=== PATIENT | male | born 1940 | race Caucasian/White ===

== ENCOUNTER → 2019-11-09 | Outpatient (CLI) | payer OTHER, BC ==
[~2019-11-09] MED LIST: ALTACE 1.25 M1.25 M1 PO; ASPIRIN EC325 M1 PO; EFFIENT10 MG PO; FISH OIL 1,0001 EAC7 PO; LIVALO4 MG PO; MULTIVITAMINS PO; MULTIVITAMINS1 EAC7 PO; OMEPRAZOLE40 MG PO; RAMIPRIL PO; TOPROL XL25 MG PO; VITAMIN E100 UNI2 PO; VITAMIN E400 UNIT PO
== END ==
LOC: SJCVCIMAG 10:38
DX: I25.10 Atherosclerotic heart disease of native coronary artery without angina pectoris (principal); E78.00 Pure hypercholesterolemia, unspecified; I73.9 Peripheral vascular disease, unspecified; I65.23 Occlusion and stenosis of bilateral carotid arteries; K21.9 Gastro-esophageal reflux disease without esophagitis; Z82.49 Family history of ischemic heart disease and other diseases of the circulatory system; Z79.82 Long term (current) use of aspirin; Z79.899 Other long term (current) drug therapy

== ENCOUNTER 2019-11-10 10:26 | Inpatient (IN) | payer OTHER, BC ==
[2019-11-10] VITALS (9 sets, daily range): BP systolic 117–154; BP diastolic 49–88
[~2019-11-10] VITALS: Ht 180.3 cm; Wt 64.4 kg
--- NOTE | ~2019-11-10 | EKG ---
[facility] [place] [address] [address] ELECTROCARDIOGRAM REPORT Name: REBECCA MADDOX Room #: 202-P ADM IN M.R.#: [id number] Admission: 11/10/19 Attend Phys: Chao Burr MD, Discharge: Date of : 38 Report #: [id number] THIS REPORT FOR: cc: Daniel Rai MD, Peter MD Epiphany,Danyell GIBBONS ~ THIS REPORT FOR: //name// [facility] Test Date: 2019-11-11 Test Time: 07:12:40 Pat Name: REBECCA MADDOX Department: Room: 202 P Gender: M Burial Vault Maker: CHARLES : 1940 Requested By: Chao Burr Order Number: [id number] MD: Measurements Intervals [place] Rate: 74 P: 6 [place]: 188 QRS: 7 QRSD: 61 T: 15 QT: 359 QTc: 399 Interpretive Statements Sinus rhythm Abnormal R-wave progression, early transition Compared to ECG 01/30/2017 07:20:23 First degree AV block no longer present Early repolarization no longer present [email or web address] By: 0712 1 Epiphany Epiphany, /EPI
--- NOTE | ~2019-11-10 | EKG ---
[address] [place] [address] ELECTROCARDIOGRAM REPORT Name: REBECCA MADDOX Room #: REG CLI [facility]#: [id number] Admission: 11/10/19 Attend Phys: Chao Burr MD, Discharge: Date of : 38 Report #: [id number] THIS REPORT FOR: //name// [facility] Test Date: 2019-11-10 Test Time: 11:05:15 Pat Name: REBECCA MADDOX Department: Room: Gender: M Restorative Care Technician: Arlene DELA CRUZ : 1940 Requested By: Chao Burr Order Number: [id number] MD: Measurements Intervals Left Hand Rate: 59 P: 21 DC: 246 QRS: 7 QRSD: 71 T: 19 QT: 388 QTc: 385 Interpretive Statements Sinus rhythm Prolonged DC interval Abnormal R-wave progression, early transition Borderline ST elevation, anterolateral leads Compared to ECG 01/30/2017 07:20:23 ST (T wave) deviation now present Early repolarization no longer present [email or web address] By: 1105 1105 Epiphany Epiphany, /EPI
[2019-11-10 11:12] LABS: HEMATOCRIT 45.6 % (42.0-52.0); HEMOGLOBIN 15.2 gm/dL (14.0-18.0); MCHC 33.3 g/dL (28.0-37.0); RBC 5.07 mil/uL (4.50-6.00); RDW 14.7 % (10.5-14.5); WBC 7.9 thou/uL (4.0-11.0)
[2019-11-10 11:25] LABS: CALCIUM 9.3 mg/dL (8.5-10.1); CREATININE 1.2 mg/dL (0.7-1.3); POTASSIUM 3.7 mmol/L (3.5-5.1)
--- NOTE | 2019-11-10 18:31 | NUR ---
NEW ADMIT/OBSERVATION POST HEART CATH WITH 1 STENT PLACED. ALERT X4, DENIES PAIN, VS STABLE. RIGHT GROIN SITE C/D/I, REMAINED LEG STRAIGHT FOR 3 HOURS POST HEMOTASSIS PER PROTOCOL. POST CATH INTERVENTIONS IN PLACE. PATIENT COMPLIANT WITH CARES. ADMISSION HISTORY AND ASSESMENT COMPLETED. CALL LIGHT IN REACH. PT EDUCATED TO CALL FOR ASSISTENCE.
[2019-11-11 00:30] VITALS: BP 109/67
--- NOTE | 2019-11-11 04:38 | NUR ---
ASSESSMENTS CHARTED, MEDS GIVEN CHARTED. PATIENT OFF BEDREST POST CATH AT START OF SHIFT. RECEIVED STENT TO OM. RIGHT GROIN SITE BANDAGE IS DRY AND INTACT. SURROUNDING AREA IS SOFT, NO HEMATOMA. DENIED PAIN. UP AT CAM IN ROOM. PLAN IS TO GO HOME IN AM.
[2019-11-11 04:45] VITALS: BP 102/63
[2019-11-11 04:46] LABS: HEMOGLOBIN 13.3 gm/dL (14.0-18.0); MCH 29.6 pg (26.0-34.0); MCHC 33.3 g/dL (28.0-37.0); MCV 88.8 fL (80.0-100.0); RBC 4.5 mil/uL (4.50-6.00); RDW 14.7 % (10.5-14.5); WBC 7.3 thou/uL (4.0-11.0)
[2019-11-11 05:22] LABS: ALBUMIN 3.3 g/dL (3.4-5.0); ANION GAP 8 mmol/L (7-16); BUN 16 mg/dL (7-18); CALCIUM 8.2 mg/dL (8.5-10.1); CHLORIDE 104 mmol/L (98-107); CO2 25 mmol/L (21-32); CREATININE 0.9 mg/dL (0.7-1.3); GLUCOSE 93 mg/dL (74-106); POTASSIUM 4.3 mmol/L (3.5-5.1); SGPT 33 U/L (30-65); SODIUM 137 mmol/L (136-145); TOTAL BILIRUBIN 0.9 mg/dL (<0.1-1.0); TOTAL PROTEIN 6.7 g/dL (6.4-8.2); TROPONIN-I <0.06 ng/mL (<0.06)
[2019-11-11 06:06] LABS: SGOT 26 U/L (15-37)
[2019-11-11 07:30] VITALS: BP 111/69
[2019-11-11] MEDS ORDERED: EFFIENT10 MG PO (07:45)
[2019-11-11 10:06] VITALS: BP 111/69
--- NOTE | 2019-11-11 11:17 | NUR ---
ASSUMED CARE 0700. ALERT X4, DENIES CHEST PAIN, DENIES GROIN SITE PAIN, DENIES SOB. UP AB CAM, DRESSING TO RIGHT GROIN C/D/I. MARKETING PROGRAM COORDINATORCAVALRY SCOUT CATH SITE CARE, HEART HEALTHY DIET AND EXERCISE INCLUDING EDUCATIONAL PAPERWORK REGARDING STENT PLACMENT POST CARE. IV AND TELE REMOVED. DC HOME WITH SELF CARE.
--- NOTE | 2019-11-11 16:12 | CATHLAB ---
[facility] [place] [address] [place] [address] INVASIVE PROCEDURE REPORT Name: REBECCA MADDOX Room #: 202-P DIS IN M.R.#: [id number] Admission: 11/10/19 Attend Phys: Chao Burr MD, Discharge: 11/11/19 Date of : 38 Report #: [id number] THIS REPORT FOR: cc: Daniel Rai MD, Peter MD Mancuso, Gerald M. MD [facility] ~ THIS REPORT FOR: //name// APPROVED REPORT Study performed: 11/10/2019 12:46:01 Patient Details Patient Status: Out-Patient Room #: The patient is a 79 year-old male Event Personnel Chao Burr Aircraft Engine Cylinder Mechanic, Tia Rajput RN RN, Melanie Luevano RTR, Duran Mcneal Sherra RTR Monitor Procedures Performed Art Access - R femoral artery* Left Heart Cath w/or w/o Coronaries 3360662 [facility] Place w/wo Plasty Single RCA 632828 82751 Initial Mod Sed Same Phys/QHP Gr5y 324379 88112 Mod Sed Same Phys/QHP Ea 803679 Hemostasis w/ Mynx Indication Chest pain Procedure Narrative The Right Groin^ was infiltrated with 1% Lidocaine subcutaneous anesthesia. A PINNACLE 6FR Sheath #[id number] sheath was inserted into the RFA^. Coronary angiography was performed using coronary diagnostic catheters. The right coronary system was accessed and visualized with a 6FR 3DRC #[id number] catheter. The left coronary system was accessed and visualized with a JL4 catheter. The left ventricle was accessed and visualized with a Pigtail catheter. Left ventriculogram was performed in 30 degree projection. Closure device was deployed with a 6 Fr MYNXGRIP 6/7F #[id number]. The patient tolerated the procedure well and there were no complications associated with the procedure. There was no hematoma. Intraoperative Conscious Sedation [facility] [place] [address] INVASIVE PROCEDURE REPORT Name: REBECCA MADDOX Room #: 202-P [facility] IN .R.#: [id number] Admission: 11/10/19 Attend Phys: Chao Burr, Discharge: 11/11/19 Date of : 38 Report #: [id number] Sedation start time: 1357 Case end Time: 1459 Fentanyl 50 mcg Versed 1 mg Fluoro Time: 11.30 minutes Dose: DAP 8393.60 cGycm2 1059 mGy Contrast Type and Amount: Visipaque 125 ml Hemodynamics The aortic pressure is 114/62 mmHg with a mean of 39 mmHg. The left ventricular pressure is 115/22 mmHg with a mean of mmHg. The left ventricular end diastolic pressure is 26 mmHg. PCI Technique Lesion Percutaneous coronary intervention was performed on the proximal right coronary artery. A LAUNCHER 6FR 3DRC #[id number] Guide Catheter was used to engage the ostium. A Luge Wire .014 x 182CM #[id number] Interventional Guidewire was used to cross the lesion. BALLOON DILATION A Balloon catheter TREK NC OTW 2.5 X 12 #[id number] was inserted and inflated up to 14.00atm for 28seconds. Additional Inflation: 18atm for 18seconds. Additional Inflation: 22.00atm for 29seconds. NC Trek 3.0x12 MARCY 22/36 secs and MARCY 22/26 secs STENT DEPLOYMENT A drug-eluting stent XIENCE SCARLET RX 3.25 X 8 #[id number] was inserted and inflated up to 6atm for 20seconds. POST STENT DEPLOYMENT BALLOON DILATION A Balloon catheter TREK NC OTW 3.5 X 12 #[id number] was inserted and inflated up to 20.00atm for 33seconds. Conclusion #1 successful PTCA stent of a high-grade ostial RCA and partial proximal in-stent restenosis 90% in the dominant right coronary artery. Placement of a 3.25 x 8 Scarlet drug-eluting stent postdilated with a noncompliant 3.5 balloon to 3.7 mm arc improvement distal flow Mid RCA lesion of 50-60% will follow #2 left main mild disease giving rise to LAD and circumflex #3 LAD with an eccentric 60-70% proximal lesion just off the left main heading into previously placed stents widely patent and diffuse disease distally. We will follow this this has not progressed from prior catheterization of one year ago. #4 circumflex OM mild disease moderate distribution [address] [address] INVASIVE PROCEDURE REPORT Name: REBECCA MADDOX Room #: 202-P [facility] IN M.R.#: [id number] Admission: 11/10/19 Attend Phys: Chao Burr, Discharge: 11/11/19 Date of : 38 Report #: [id number] #5 normal left ventricular size and ejection fraction 50-55 percent Recommendations plan continue aggressive risk factor modification. Dual antiplatelet therapy at least one year. We will follow the mid RCA and ostial LAD lesions although they have not progressed since prior exam. Pain-free and stable to transfer CCU follow stent protocol <ELECTRONICALLY SIGNED> By: Chao Burr MD, FACC 11/11/191610 10 10 Chao Burr MD, FACC /INF
== END 2019-11-11 11:19 | disposition home or self-care (01) | DRG 246 ==
LOC: CATH 10:26 → TBACV 12:05 → 2N 12:05
PROVIDERS: ADMIT Internal Medicine Cardiovascular Disease
PROC: B215YZZ Fluoroscopy of Left Heart using Other Contrast (ICD-10-PCS; principal; 2019-11-10)
PROC: 4A023N7 Measurement of Cardiac Sampling and Pressure, Left Heart, Percutaneous Approach (ICD-10-PCS; principal; 2019-11-10)
PROC: B211YZZ Fluoroscopy of Multiple Coronary Arteries using Other Contrast (ICD-10-PCS; principal; 2019-11-10)
PROC: 027034Z Dilation of Coronary Artery, One Artery with Drug-eluting Intraluminal Device, Percutaneous Approach (ICD-10-PCS; principal; 2019-11-10)
DX: T82.855A Stenosis of coronary artery stent, initial encounter (principal); I50.33 Acute on chronic diastolic (congestive) heart failure; I25.10 Atherosclerotic heart disease of native coronary artery without angina pectoris; E78.5 Hyperlipidemia, unspecified; I73.9 Peripheral vascular disease, unspecified; E78.00 Pure hypercholesterolemia, unspecified; I65.23 Occlusion and stenosis of bilateral carotid arteries; K21.9 Gastro-esophageal reflux disease without esophagitis; Y83.8 Other surgical procedures as the cause of abnormal reaction of the patient, or of later complication, without mention of misadventure at the time of the procedure; Y92.89 Other specified places as the place of occurrence of the external cause; Z79.82 Long term (current) use of aspirin; Z79.899 Other long term (current) drug therapy; Z95.5 Presence of coronary angioplasty implant and graft; Z82.49 Family history of ischemic heart disease and other diseases of the circulatory system; I11.0 Hypertensive heart disease with heart failure
CPT/HCPCS: 10081

== ENCOUNTER → 2020-04-11 | Outpatient (CLI) | payer OTHER, BC | LOC: SJCVCIMAG 11:17 | PROVIDERS: ATTEND Nuclear Medicine Nuclear Cardiology | DX: I70.201 Unspecified atherosclerosis of native arteries of extremities, right leg (principal); I25.10 Atherosclerotic heart disease of native coronary artery without angina pectoris; I10 Essential (primary) hypertension; E78.00 Pure hypercholesterolemia, unspecified ==

== ENCOUNTER → 2020-04-19 | Outpatient (CLI) | payer OTHER, BC ==
[~2020-04-19] VITALS: Ht 180.3 cm; Wt 65.8 kg
[2020-04-19 07:14] VITALS: BP 116/65
[2020-04-19 07:27] LABS: HEMATOCRIT 40.4 % (42.0-52.0); HEMOGLOBIN 13.6 gm/dL (14.0-18.0); MCH 31.1 pg (26.0-34.0); MCHC 33.6 g/dL (28.0-37.0); MCV 92.6 fL (80.0-100.0); RBC 4.36 mil/uL (4.50-6.00); RDW 12.7 % (10.5-14.5); WBC 7.4 thou/uL (4.0-11.0)
[2020-04-19 07:30] LABS: CALCIUM 8.8 mg/dL (8.5-10.1); CREATININE 1.1 mg/dL (0.7-1.3); POTASSIUM 4.2 mmol/L (3.5-5.1)
== END | disposition home or self-care (01) ==
LOC: CATH 06:44
PROVIDERS: ATTEND Nuclear Medicine Nuclear Cardiology
DX: I70.211 Atherosclerosis of native arteries of extremities with intermittent claudication, right leg (principal); I70.1 Atherosclerosis of renal artery; I10 Essential (primary) hypertension; I25.10 Atherosclerotic heart disease of native coronary artery without angina pectoris; E78.00 Pure hypercholesterolemia, unspecified; E78.5 Hyperlipidemia, unspecified; Z98.890 Other specified postprocedural states; Z79.899 Other long term (current) drug therapy; Z79.82 Long term (current) use of aspirin

== ENCOUNTER → 2020-07-03 | Outpatient (CLI) | payer OTHER, BC | LOC: SJCVC 14:23 | PROVIDERS: ATTEND Internal Medicine Cardiovascular Disease | DX: I25.10 Atherosclerotic heart disease of native coronary artery without angina pectoris (principal); I10 Essential (primary) hypertension; E78.00 Pure hypercholesterolemia, unspecified; I73.9 Peripheral vascular disease, unspecified; K21.9 Gastro-esophageal reflux disease without esophagitis ==

== ENCOUNTER → 2020-07-20 | Outpatient (CLI) | payer OTHER, BC | LOC: SJCVCIMAG 09:12 | PROVIDERS: ATTEND Nuclear Medicine Nuclear Cardiology | DX: I73.9 Peripheral vascular disease, unspecified (principal); I77.9 Disorder of arteries and arterioles, unspecified; I25.10 Atherosclerotic heart disease of native coronary artery without angina pectoris; I10 Essential (primary) hypertension; E78.00 Pure hypercholesterolemia, unspecified; Z95.820 Peripheral vascular angioplasty status with implants and grafts; Z79.899 Other long term (current) drug therapy ==

== ENCOUNTER → 2020-11-14 | Outpatient (CLI) | payer OTHER, BC | LOC: SJCVCIMAG 08:37 | PROVIDERS: ATTEND Internal Medicine Cardiovascular Disease | DX: I25.10 Atherosclerotic heart disease of native coronary artery without angina pectoris (principal); I10 Essential (primary) hypertension; I73.9 Peripheral vascular disease, unspecified; Z98.61 Coronary angioplasty status; Z95.828 Presence of other vascular implants and grafts; Z79.899 Other long term (current) drug therapy ==

== ENCOUNTER → 2021-01-30 | Outpatient (CLI) | payer OTHER, BC | LOC: SJCVCIMAG 09:21 | PROVIDERS: ATTEND Nuclear Medicine Nuclear Cardiology | DX: I65.23 Occlusion and stenosis of bilateral carotid arteries (principal); I70.201 Unspecified atherosclerosis of native arteries of extremities, right leg; I77.9 Disorder of arteries and arterioles, unspecified; I25.10 Atherosclerotic heart disease of native coronary artery without angina pectoris; I10 Essential (primary) hypertension; E78.00 Pure hypercholesterolemia, unspecified; K21.9 Gastro-esophageal reflux disease without esophagitis; Z72.89 Other problems related to lifestyle; Z79.899 Other long term (current) drug therapy; Z79.82 Long term (current) use of aspirin; Z95.820 Peripheral vascular angioplasty status with implants and grafts ==

== ENCOUNTER → 2021-09-04 | Outpatient (CLI) | payer OTHER, BC | LOC: SJCVCIMAG 13:47 | PROVIDERS: ATTEND Nuclear Medicine Nuclear Cardiology | DX: I73.9 Peripheral vascular disease, unspecified (principal); I77.9 Disorder of arteries and arterioles, unspecified; I25.10 Atherosclerotic heart disease of native coronary artery without angina pectoris; E78.00 Pure hypercholesterolemia, unspecified; I10 Essential (primary) hypertension; K21.9 Gastro-esophageal reflux disease without esophagitis; Z79.82 Long term (current) use of aspirin; Z79.899 Other long term (current) drug therapy; Z72.89 Other problems related to lifestyle ==